=== PATIENT | male | born 2000 | race Caucasian/White ===

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

== ENCOUNTER 2020-11-03 15:44 | Emergency (ER) | payer MEDICAID ==
[~2020-11-03] VITALS: Ht 177 cm; Wt 95.2 kg
[~2020-11-03 15:44] MED LIST: AMOX500C2 PO; METH4TAB PO
[2020-11-03 15:59] VITALS: BP 129/89
[2020-11-03] MEDS ORDERED: HYDROcodone/APAP 5 MG/325 MG (LORTAB) TAB PO ONE (16:00)
[2020-11-03] MEDS ORDERED: IBUPROFEN 800 MG (MOTRIN) TAB PO ONE (16:00)
--- NOTE | 2020-11-03 16:04 | ED Lower Extremity ---
General Stated Complaint: R ANKLE INJ Source: patient Exam Limitations: no limitations (RENEE ROBERTO STUDENT) History of Present Illness Date Seen by Provider: Nov 03, 2020 Time Seen by Provider: 15:58 Initial Comments Patient is a 19 yo male that presents today with ankle pain. States that he stepped off his porch into a hole and twisted his ankle. He is unsure if there was any tearing or popping because he and girlfriend state that he passed out for about a minute when it happened. He has 100/10 pain in the R foot that he says shoots up the leg. He is unable to bear weight. He states that he has had a cold sweat with this. He states that every year he will twist his ankle like this but it has never been this bad. (RENEE ROBERTO STUDENT) Allergies and Home Medications Allergies Coded Allergies: No Known Drug Allergies (Unverified , 10/24/18) Home Medications Amoxicillin 500 Mg Capsule, 500 MG PO TID Prescribed by: SEBAS MARRERO on 10/24/181903 Hydrocodone/Acetaminophen 1 Each Tablet, 1 TAB PO Q4H PRN for PAIN-MODERATE (5- 7) Prescribed by: SEBAS MARRERO on 11/03/20 1623 Methylprednisolone 4 Mg Tab.ds.pk, 4 MG PO UD PER DOSE PACK INSTRUCTIONS Prescribed by: SEBAS MARRERO on 10/24/181903 Patient Home Medication List Home Medication List Reviewed: Yes (SEBAS MARRERO APRN) Review of Systems Constitutional: diaphoresis (cold sweat); No fever EENTM: No vision loss Respiratory: No phlegm, No short of breath Cardiovascular: No chest pain, No palpitations Gastrointestinal: No abdominal pain, No constipation, No diarrhea, No nausea, No vomiting Genitourinary: No dysuria, No hematuria Musculoskeletal: joint pain, joint swelling Skin: No rash Psychiatric/Neurological: Denies Headache (RENEE ROBERTO STUDENT) Past Xjtuwqs-Dblihp-Cqlbor Hx Patient Social History Drug of Choice: thc Type Used: Cigarettes (RENEE ROBERTO) Physical Exam Vital Signs Vital Signs - First Documented 11/03/20 15:59 Temp 37.0 Pulse 84 Resp 20 B/P (MAP) 129/89 (102) Pulse Ox 99 (SEBAS MARRERO APRN) Vital Signs Capillary Refill : (PARDEEP,RENEE MED STUDENT) Height, Weight, BMI Height: 5'10.00" Weight: 190lbs. oz. 86.004071op; 21.09 BMI Method: General Appearance: WD/WN, moderate distress Cardiovascular: normal peripheral pulses, regular rate, rhythm, no edema, no gallop, no JVD, no murmur Respiratory: chest non-tender, lungs clear, normal breath sounds, no respiratory distress, no accessory muscle use Gastrointestinal: normal bowel sounds, non tender, soft, no organomegaly, no pulsatile mass Hips: bilateral hip non-tender Legs: bilateral leg non-tender Knees: bilateral knee non-tender Ankles: right ankle limited range of motion, right ankle pain, right ankle swelling, right ankle other (Dorsal pedal pulse intact) Feet: right foot other (Slight tenderness on L side of foot, otherwise normal) Neurologic/Tendon: normal sensation Neurologic/Psychiatric: alert, normal mood/affect, oriented x 3 Skin: normal color, warm/dry (RENEE ROBERTO MED STUDENT) Progress/Results/Core Measures Results/Orders My Orders Orders - SEBAS MARRERO APRN Tibia/Fibula, Right, 2 Views (11/03/20 15:56) Foot, Right, 3 View (11/03/20 15:56) Hydrocodone/Apap 5/325 Tablet (Lortab 5 (11/03/20 16:00) Ibuprofen Tablet (Motrin Tablet) (11/03/20 16:00) (SEBAS MARRERO APRN) Medications Given in ED Current Medications Medications Dose Ordered Sig/Lenny Route Start Time Stop Time Status Last Admin Dose Admin Acetaminophen/ Hydrocodone Bitart 1 ea ONCE ONCE PO 11/03/20 16:00 11/03/20 16:01 DC 11/03/20 16:06 1 EA Ibuprofen 800 mg ONCE ONCE PO 11/03/20 16:00 11/03/20 16:01 DC 11/03/20 16:06 800 MG (SEBAS MARRERO APRN) Vital Signs/I&O 11/03/20 15:59 Temp 37.0 Pulse 84 Resp 20 B/P (MAP) 129/89 (102) Pulse Ox 99 (SEBAS MARRERO APRN) Departure Communication (Admissions) 1620-I have seen the patient as well and agree with the assessment he has a lot of swelling over the lateral malleolus. No tenderness or swelling over the medial malleolus. He has a strong dorsalis pedis pulse. There is some tenderness over the dorsal aspect of the foot the third fourth and fifth metatarsals. We will give him crutches, Earl wrap, pain medication and have him follow-up with orthopedics. (SEBAS MARRERO APRN) Impression Primary Impression: Sprain and strain of ankle Disposition: HOME, SELF-CARE Condition: Stable Departure-Patient Inst. Decision time for Depature: 16:21 (SEBAS MARRERO APRN) Referrals: NO,LOCAL PHYSICIAN (PCP) Primary Care Physician SEBASTIAN HERNANDEZ MD,MARCO Emmanuel MD Patient Instructions: Ankle Sprain Add. Discharge Instructions: 1. Elevate the foot is much as possible. Take Tylenol and ibuprofen for pain control in addition to the prescribed pain medication. Use the crutches as n eeded for pain with walking which will likely be necessary for the next 2 weeks. Follow-up with one of the orthopedic surgeons listed. Call tomorrow to make an appointment to be seen. Scripts Hydrocodone/Acetaminophen (Hydrocodone-Acetamin 5-325 mg) 1 Each Tablet 1 TAB PO Q4H PRN for PAIN-MODERATE (5-7), #20 TAB Prov: SEBAS MARRERO APRN 11/03/20 Work/School Note: Work Release Form Date Seen in the Emergency Department: Nov 03, 2020 Return to Work: Nov 09, 2020 Attending physician note: I was physically present in the emergency department during the care of this patient as the attending physician on duty, but I was not directly involved in the care or decision-making for this patient. (GENOVEVA MARTINEZ MD) RENEE ROBERTO MED STUDENT Nov 03, 2020 16:04 SEBAS MARRERO APRN Nov 03, 2020 16:24 GENOVEVA MARTINEZ MD Nov 03, 2020 19:35
[2020-11-03] MEDS ORDERED: ACHD5005 PO (16:22)
--- NOTE | 2020-11-03 16:37 | Diagnostic Imaging Report ---
INDICATION: Stepped in hole and rolled ankle. FINDINGS: Right tibia-fibula. The knee and ankle show good alignment. Articulating surfaces are smooth. No fractures demonstrated. IMPRESSION: Negative right tibia and fibula. Dictated by: Dictated on workstation # [id number]
--- NOTE | 2020-11-03 17:07 | Diagnostic Imaging Report ---
FOOT, RIGHT, 3 VIEW INDICATION: Left foot pain COMPARISON: None available. TECHNIQUE: Three non-weightbearing views of foot were obtained. FINDINGS: No fracture or traumatic malalignment. No evidence of metatarsal stress fracture. Potential small ankle joint effusion. Achilles shadow is normal. IMPRESSION: 1. No acute fracture or traumatic malalignment. Dictated by: Dictated on workstation # [id number]
== END 2020-11-03 16:49 | disposition home or self-care (01) ==
LOC: EDUNIT# 15:44 → ER 15:46
DX: S93.401A Sprain of unspecified ligament of right ankle, initial encounter (principal); Z79.52 Long term (current) use of systemic steroids; X50.1XXA Overexertion from prolonged static or awkward postures, initial encounter
CPT/HCPCS: 73590; 73630; 99283; L2114